=== PATIENT | female | born 1940 | race Caucasian/White ===

== ENCOUNTER → 2018-07-26 | Outpatient (CLI) | payer MEDICARE ==
[~2018-07-26] MED LIST: ALBU8.5H3 IH; CHOL200074 PO; IOHEXOL-350 75 ML VIAL IV ONE; MONT10TA21 PO; POTA-79 PO; SPIR100T5 PO; THEO400T3 PO
== END | disposition home or self-care (01) ==
LOC: RAH 08:03
PROVIDERS: ATTEND Family Medicine
DX: S22.079A Unspecified fracture of T9-T10 vertebra, initial encounter for closed fracture (principal); S22.089A Unspecified fracture of T11-T12 vertebra, initial encounter for closed fracture; S22.059A Unspecified fracture of T5-T6 vertebra, initial encounter for closed fracture; K44.9 Diaphragmatic hernia without obstruction or gangrene; J44.9 Chronic obstructive pulmonary disease, unspecified; Z72.89 Other problems related to lifestyle; X58.XXXA Exposure to other specified factors, initial encounter; Y93.89 Activity, other specified; Y92.89 Other specified places as the place of occurrence of the external cause; Y99.8 Other external cause status; K21.9 Gastro-esophageal reflux disease without esophagitis
CPT/HCPCS: 71270; Q9967

== ENCOUNTER 2019-02-09 18:59 | Emergency (ER) | payer MEDICARE ==
[~2019-02-09 18:59] MED LIST changes: -IOHEXOL-350 75 ML VIAL IV ONE
[2019-02-09] MEDS ORDERED: IPRATROPIUM/ALBUTEROL SULFATE 3 ML SOLUTION IH ONE (19:04)
[2019-02-09 19:16] LABS: BASOPHILS % (AUTO) 0.8 % (0.0-5.0); EOSINOPHILS % (AUTO) 1.6 % (0.0-8.0); HEMATOCRIT 37.1 % (36-48); LYMPHOCYTES % (AUTO) 18.7 % (21.0-51.0); MEAN CORPUSCULAR HEMOGLOBIN 31.6 pg (27.0-33.0); MEAN CORPUSCULAR HGB CONC 34.4 g/dL (32.0-36.0); MEAN CORPUSCULAR VOLUME 91.6 fL (79-99); MONOCYTES % (AUTO) 11.3 % (3.0-13.0); NEUTROPHILS % (AUTO) 67.6 % (40.0-77.0); NUCLEATED RED BLOOD CELLS 0.1 % (0.0-0.19); PLATELET COUNT (AUTO) 341 K/uL (130-400); RED BLOOD CELL COUNT(AUTO) 4.04 MIL/uL (4.00-5.50); RED CELL DISTRIBUTION WIDTH 16.8 % (11.0-15.5); WHITE BLOOD COUNT (AUTO) 8.4 K/uL (4.8-10.8)
[2019-02-09 19:23] LABS: CREATININE 1.2 mg/dL (0.5-1.5); POTASSIUM 4.1 mmol/L (3.5-5.1)
[2019-02-09 19:33] LABS: ALBUMIN 4.2 g/dL (3.5-5.0); BILIRUBIN,TOTAL 0.8 mg/dL (0.2-1.0); TOTAL PROTEIN, SERUM 7.4 g/dL (6.0-8.3)
[2019-02-09] MEDS ORDERED: FUROSEMIDE 20 MG TABLET ONE (19:48)
[2019-02-09] MEDS ORDERED: PREDNISONE 20 MG TABLET ONE (19:48)
[2019-02-09] MEDS ORDERED: DIPHENHYDRAMINE HCL 25 MG CAPSULE ONE (19:48)
[2019-02-09] MEDS ORDERED: AZITHROMYCIN 250 MG TABLET PO ONE (21:00)
[2019-02-09] MEDS ORDERED: ALBUTEROL SULFATE 0.083% 2.5 MG/3 ML INH IH ONE (21:12)
[2019-02-09 22:31] LABS: INR 0.93 (0.85-1.15); PARTIAL THROMBOPLASTIN TIME 24.1 SEC (26.3-35.5); PROTHROMBIN TIME 9.8 SEC (9.6-11.6)
[2019-02-14] MEDS ORDERED: DOXY100T2 PO (11:37)
== END 2019-02-09 22:07 | disposition home or self-care (01) ==
LOC: EDH 18:59
DX: J44.1 Chronic obstructive pulmonary disease with (acute) exacerbation (principal); Z91.010 Allergy to peanuts; Z87.891 Personal history of nicotine dependence
CPT/HCPCS: 36415; 71045; 80053; 83880; 84484; 85025; 85610; 85730; 93005; 94640 ×2; 99285; Q0163

== ENCOUNTER 2019-03-11 03:33 | Inpatient (IN) | payer MEDICARE ==
[~2019-03-11] VITALS: Ht 152.4 cm; Wt 104.0 kg
[~2019-03-11 03:33] MED LIST changes: +DOXY100T2 PO
[2019-03-11 03:49] LABS: ABG BASE EXCESS -18.3 mmol/L (-2.0-3.0); ABG HCO3 8.4 mmol/L (21.0-28.0); ABG OXYGEN SATURATION 99.2 % (95.0-99.0); ABG PCO2 24 mmHg (32-45)
[2019-03-11] MEDS ORDERED: CEFTRIAXONE SODIUM 1 GM ONE (03:50)
[2019-03-11] MEDS ORDERED: AZITHROMYCIN 500MG+NS 250ML 250 ML IV ONE (03:50)
[2019-03-11] MEDS ORDERED: METHYLPREDNISOLONE SOD SUCC 125MG/2ML VIAL ONE (03:50)
[2019-03-11] MEDS ORDERED: IPRATROPIUM/ALBUTEROL SULFATE 3 ML SOLUTION IH ONE (03:54)
[2019-03-11 04:41] LABS: BASOPHILS % (AUTO) 0.3 % (0.0-5.0); EOSINOPHILS % (AUTO) 0.1 % (0.0-8.0); HEMATOCRIT 25.2 % (36-48); LYMPHOCYTES % (AUTO) 8.1 % (21.0-51.0); MEAN CORPUSCULAR HGB CONC 31.2 g/dL (32.0-36.0); MONOCYTES % (AUTO) 2.7 % (3.0-13.0); NEUTROPHILS % (AUTO) 88.8 % (40.0-77.0); NUCLEATED RED BLOOD CELLS 0.5 % (0.0-0.19); PLATELET COUNT (AUTO) 318 K/uL (130-400); RED BLOOD CELL COUNT(AUTO) 2.63 MIL/uL (4.00-5.50); RED CELL DISTRIBUTION WIDTH 17.2 % (11.0-15.5); WHITE BLOOD COUNT (AUTO) 8.4 K/uL (4.8-10.8)
[2019-03-11] MEDS ORDERED: ALBUTEROL SULFATE 0.083% 2.5 MG/3 ML INH IH ONE (04:43)
[2019-03-11 04:50] LABS: INR 1.01 (0.85-1.15); PARTIAL THROMBOPLASTIN TIME 18.7 SEC (26.3-35.5); PROTHROMBIN TIME 10.6 SEC (9.6-11.6)
[2019-03-11 04:53] LABS: ALBUMIN 2.8 g/dL (3.5-5.0); BILIRUBIN,TOTAL 0.5 mg/dL (0.2-1.0); CREATININE 1.7 mg/dL (0.5-1.5); TOTAL PROTEIN, SERUM 5.5 g/dL (6.0-8.3)
[2019-03-11] MEDS ORDERED: EPINEPHRINE 0.1 MG/ML 10 ML SYG ONE ×3 (05:09→08:12)
[2019-03-11] MEDS ORDERED: SODIUM BICARB 50MEQ 50ML VIAL ONE ×4 (05:14→07:52)
[2019-03-11] MEDS ORDERED: SODIUM CHLORIDE 0.9% 250 ML IV ONE ×3 (05:18→08:03)
[2019-03-11] MEDS ORDERED: EPINEPHRINE 1 MG/ML 30ML VIAL IJ ONE (05:21)
[2019-03-11 05:26] LABS: B-TYPE NATRIURETIC PEPTIDE 164 pg/mL (0-100)
[2019-03-11 05:27] LABS: POTASSIUM 6.5 mmol/L (3.5-5.1)
[2019-03-11] MEDS ORDERED: SODIUM CHLORIDE 0.9% 1000ML 1,000 ML IV SCH ×3 (05:42)
[2019-03-11] MEDS ORDERED: DEXTROSE 5 %-0.45 % NACL 1,000 ML IV PRN ×2 (05:42)
[2019-03-11] MEDS ORDERED: POTASSIUM CHLORIDE 10MEQ/100ML 100 ML IV PRN (05:45)
[2019-03-11] MEDS ORDERED: INSULIN HUMULIN R 100 UNIT/ML 3ML IV SCH (05:45)
[2019-03-11] MEDS ORDERED: MAGNESIUM 2GM PREMIX 50ML 50 ML IV PRN (05:45)
[2019-03-11] MEDS ORDERED: OCTREOTIDE ACETATE 500 MCG in SODIUM CHLORIDE 0.9% 97.5 ML IV PRN (05:45)
[2019-03-11] MEDS ORDERED: PANTOPRAZOLE SODIUM 80 MG in SODIUM CHLORIDE 0.9% 100 ML IV SCH (05:45)
[2019-03-11] MEDS ORDERED: SODIUM CHLORIDE 0.9% 1000ML 1,000 ML IV STA ×4 (05:58)
[2019-03-11] MEDS ORDERED: VANCOMYCIN PROTOCOL PER PHARMACY IV PRN (06:00)
[2019-03-11] MEDS ORDERED: IPRATROPIUM/ALBUTEROL SULFATE 3 ML SOLUTION IH SCH (06:00)
[2019-03-11] MEDS ORDERED: NITROGLYCERIN 0.4 MG SL TAB SL PRN (06:00)
[2019-03-11] MEDS ORDERED: ACETAMINOPHEN 650 MG SUPPOSITORY RC PRN ×2 (06:00)
[2019-03-11 06:22] LABS: HEMOGLOBIN A1C 8.2 % (4.0-6.0)
[2019-03-11 06:26] LABS: CRP QUANTITATIVE < 2.00 mg/L (0.00-9.0)
[2019-03-11] MEDS ORDERED: COMPOUND IV REFRIGERATED 1 EACH IVSOLN MISC PRN (06:30)
[2019-03-11 06:40] LABS: % IRON SATURATION 8.4 % (22-44)
[2019-03-11] MEDS ORDERED: CALCIUM GLUCONATE 1 GM/10 ML VIAL IV ONE (06:40)
[2019-03-11] MEDS ORDERED: INSULIN HUMULIN R 100 UNIT/ML 3ML ONE ×2 (06:40→08:07)
[2019-03-11] MEDS ORDERED: SODIUM CHLORIDE 0.9% 100 ML IV ONE ×2 (06:53→07:10)
[2019-03-11 06:55] LABS: ABG BASE EXCESS -26.1 mmol/L (-2.0-3.0); ABG HCO3 6.3 mmol/L (21.0-28.0); ABG OXYGEN SATURATION 99.8 % (95.0-99.0); ABG PCO2 33 mmHg (32-45)
[2019-03-11] MEDS ORDERED: VANCOMYCIN 1.5 GM in SODIUM CHLORIDE 0.9% 250 ML IV SCH (07:00)
[2019-03-11] MEDS ORDERED: OCTREOTIDE ACETATE 100 MCG/ML AMP ONE ×2 (07:05→07:12)
[2019-03-11] MEDS ORDERED: NOREPINEPHRINE BITARTRATE 1 MG/1 ML ML IV ONE (07:40)
[2019-03-11] MEDS ORDERED: SODIUM BICARB 50MEQ 50ML VIAL IV SCH (07:45)
[2019-03-11] MEDS ORDERED: INSULIN REGULAR, HUMAN 3ML 100 UNIT in SODIUM CHLORIDE 0.9% 99 ML IV PRN ×2 (07:45)
[2019-03-11] MEDS ORDERED: LACTATED RINGERS 1000ML 2,000 ML IV SCH (07:45)
[2019-03-11] MEDS ORDERED: SODIUM CHLORIDE 0.9% 500ML 500 ML IV ONE (07:52)
[2019-03-11 08:03] LABS: ABG BASE EXCESS -12.7 mmol/L (-2.0-3.0); ABG HCO3 15.9 mmol/L (21.0-28.0); ABG OXYGEN SATURATION 99.1 % (95.0-99.0); ABG PCO2 56 mmHg (32-45)
[2019-03-11] MEDS ORDERED: ZOSYN 3.375GM+NS 50ML 50 ML IV SCH (09:00)
[2019-03-11] MEDS ORDERED: CALCIUM CHLORIDE 100 MG/ML 10 ML SYG IVP ONE (12:00)
[2019-03-11] MEDS ORDERED: SODIUM BICARB 8.4% 50ML SYRINGE IVP ONE (12:00)
[2019-03-11] MEDS ORDERED: METHYLPREDNISOLONE SOD SUCC 125MG/2ML VIAL IV SCH (12:00)
[2019-03-11] MEDS ORDERED: EPINEPHRINE 0.1 MG/ML 10 ML SYG IVP ONE (12:00)
== END 2019-03-11 10:44 | disposition expired | DRG 871 ==
LOC: EDH 03:33 → EDHIP 05:50
PROVIDERS: ADMIT Internal Medicine; ATTEND Internal Medicine
PROC: 30233N1 Transfusion of Nonautologous Red Blood Cells into Peripheral Vein, Percutaneous Approach (ICD-10-PCS; principal; 2019-03-11)
PROC: 5A09357 Assistance with Respiratory Ventilation, Less than 24 Consecutive Hours, Continuous Positive Airway Pressure (ICD-10-PCS; 2019-03-11)
PROC: 5A1935Z Respiratory Ventilation, Less than 24 Consecutive Hours (ICD-10-PCS; 2019-03-11)
PROC: 0BH17EZ Insertion of Endotracheal Airway into Trachea, Via Natural or Artificial Opening (ICD-10-PCS; 2019-03-11)
PROC: 5A12012 Performance of Cardiac Output, Single, Manual (ICD-10-PCS; 2019-03-11)
DX: A41.9 Sepsis, unspecified organism (principal); E11.10 Type 2 diabetes mellitus with ketoacidosis without coma; R65.21 Severe sepsis with septic shock; J96.01 Acute respiratory failure with hypoxia; J18.9 Pneumonia, unspecified organism; J44.1 Chronic obstructive pulmonary disease with (acute) exacerbation; K92.2 Gastrointestinal hemorrhage, unspecified; Z68.41 Body mass index [BMI] 40.0-44.9, adult; J44.0 Chronic obstructive pulmonary disease with (acute) lower respiratory infection; E11.22 Type 2 diabetes mellitus with diabetic chronic kidney disease; I46.9 Cardiac arrest, cause unspecified; E66.01 Morbid (severe) obesity due to excess calories; E78.5 Hyperlipidemia, unspecified; H91.90 Unspecified hearing loss, unspecified ear; I12.9 Hypertensive chronic kidney disease with stage 1 through stage 4 chronic kidney disease, or unspecified chronic kidney disease; N18.3 Chronic kidney disease, stage 3 (moderate); Z90.710 Acquired absence of both cervix and uterus; Z96.641 Presence of right artificial hip joint; Z96.653 Presence of artificial knee joint, bilateral; Z96.612 Presence of left artificial shoulder joint; Z96.611 Presence of right artificial shoulder joint; Z88.8 Allergy status to other drugs, medicaments and biological substances; Z91.010 Allergy to peanuts
CPT/HCPCS: 31500; 36415; 36600; 71045; 80053; 82435; 82550; 82728; 82803; 82947; 83036; 83540; 83550; 83605; 83735; 83880; 84132; 84295; 84484; 85018; 85025; 85610; 85730; 86140; 86850; 86900; 86901; 86922; 87040; 92950; 93005; 94002; 94640; 94660; 99291; 99292; G0378; J0171; J0456; J0610; J0696; J1815; J2354; J2930; J3370; J3490; J7030; J7040; P9016